=== PATIENT | female | born 1960 | race Caucasian/White ===

== ENCOUNTER 2020-04-05 11:49 | Emergency (ER) | payer BC ==
--- NOTE | 2020-04-05 12:30 | ER Document Report ---
ED Medical Screen (RME) - General Chief Complaint: Chest Pain Stated Complaint: CHEST PAIN Time Seen by Provider: 04/05/20 12:28 Mode of Arrival: Ambulatory Information source: Patient Notes: 59-year-old female presents to ED for complaint of chest pain intermittently for 2 years. She states for the last week or more is been much more frequently. Last week she has had for 5 episodes a day sometimes lasting 5 to 10 minutes. She states her heart was racing and is and she can gets resting it will come back down. She states she does drink multiple cups of coffee a day until the days of her states she has not drank coffee. She is alert oriented respirations regular nonlabored speaking in full sentences. I have greeted and performed a rapid initial assessment of this patient. A comprehensive ED assessment and evaluation of the patient, analysis of test results and completion of medical decision making process will be conducted by an additional ED providers. - Related Data Allergies/Adverse Reactions: No Known Allergies Allergy (Verified 04/05/20 12:20) Past Medical History - Social History Frequency of alcohol use: Rare Physical Exam - Vital signs Vitals: Temp Pulse Resp BP Pulse Ox 98.2 F 107 H 16 143/83 H 98 04/05/20 11:59 04/05/20 11:59 04/05/20 11:59 04/05/20 11:59 04/05/20 11:59 Course - Vital Signs Vital signs: Temp Pulse Resp BP Pulse Ox 98.2 F 107 H 16 143/83 H 98 04/05/20 11:59 04/05/20 11:59 04/05/20 11:59 04/05/20 11:59 04/05/20 11:59
--- NOTE | 2020-04-05 12:52 | RADIOLOGY REPORT (SQ) ---
EXAM DESCRIPTION: CHEST 2 VIEWS IMAGES COMPLETED DATE/TIME: 04/05/2020 12:44 pm REASON FOR STUDY: Chest pain COMPARISON: None. EXAM PARAMETERS: NUMBER OF VIEWS: two views TECHNIQUE: Digital Frontal and Lateral radiographic views of the chest acquired. RADIATION DOSE: NA LIMITATIONS: none FINDINGS: LUNGS AND PLEURA: No opacities, masses or pneumothorax. No pleural effusion. MEDIASTINUM AND HILAR STRUCTURES: No masses or contour abnormalities. HEART AND VASCULAR STRUCTURES: Heart normal size. No evidence for failure. BONES: No acute findings. HARDWARE: None in the chest. OTHER: No other significant finding. IMPRESSION: NO ACUTE RADIOGRAPHIC FINDING IN THE CHEST. TECHNICAL DOCUMENTATION: JOB ID: [id number] 2010 [employer]- All Rights Reserved Reading location - IP/workstation name: [email or web address]
--- NOTE | 2020-04-05 13:16 | EKG REPORT ---
SEVERITY:- ABNORMAL ECG - SINUS TACHYCARDIA REPOL ABNRM SUGGESTS ISCHEMIA, DIFFUSE LEADS, CLINICAL CORRELATION NEEDED. : Confirmed by: Garry Leo MD 05-Apr-2020 13:15:47
[2020-04-05 13:30] LABS: ABSOLUTE EOSINOPHILS # (AUTO) 0.1 10^3/uL (0.0-0.6); ABSOLUTE MONOCYTES (AUTO) 0.5 10^3/uL (0.1-1.4); ABSOLUTE NEUT (AUTO) 5.9 10^3/uL (1.7-8.2); BASOPHILS % (AUTO) 0.5 % (0-2); EOSINOPHILS % (AUTO) 0.6 % (0-6); HEMATOCRIT 39.6 % (36.0-47.0); HEMOGLOBIN 13.3 g/dL (12.0-15.5); LYMPHOCYTES % (AUTO) 23.5 % (13-45); MEAN CORPUSCULAR HEMOGLOBIN 25.7 pg (27.0-33.4); MEAN CORPUSCULAR HGB CONC 33.5 g/dL (32.0-36.0); MEAN CORPUSCULAR VOLUME 77 fl (80-97); MONOCYTES % (AUTO) 6.2 % (3-13); PLATELET COUNT 272 10^3/uL (150-450); RED BLOOD COUNT 5.17 10^6/uL (3.72-5.28); RED CELL DISTRIBUTION WIDTH 13.8 % (11.5-14.0); SEGMENTED NEUTROPHILS % (AUTO) 69.2 % (42-78); TOTAL CELLS COUNTED % (AUTO) 100 %; WHITE BLOOD COUNT 8.5 10^3/uL (4.0-10.5)
--- NOTE | 2020-04-05 13:37 | ER Document Report ---
ED Cardiac - General Chief Complaint: Chest Pain Stated Complaint: CHEST PAIN Time Seen by Provider: 04/05/20 12:28 Mode of Arrival: Ambulatory - [facility] Notes: Patient is a 59-year-old female with no significant past medical history who presents with chest pain. Patient states that she has had the symptoms off and on for the past 2 years. She has never seen anyone for this. The past week and a half, she has had increasing episodes. She states that it happens 4-5 times a day and lasts anywhere from 5 to 30 minutes. She states it feels like pressure and her heart pounding in her left chest. She has nausea with this as well. She denies any back pain or pain radiating down her arms or her jaw. She is not short of breath with this. She denies any shortness of breath. No pleuritic pain. She states that it happens more often when she is walking to her mailbox. The symptoms can also happen when she is just sitting and watching TV. She states she has started taking a baby aspirin every day about 1 week ago because that is what her does. No recent illnesses. She denies any leg s welling. No previous DVT or PE. She has never been diagnosed with high cholesterol or hypertension. She quit smoking in 1982. Patient states she made an appointment to establish care with a PCP today. She had a video visit and told the PCP her symptoms who recommended she go to the ED. - Related Data Allergies/Adverse Reactions: No Known Allergies Allergy (Verified 04/05/20 12:20) Past Medical History - General Information source: Patient - Social History Smoking Status: Former Smoker Frequency of alcohol use: Rare Family History: Reviewed & Not Pertinent Review of Systems - Review of Systems Notes: CONSTITUTIONAL: No fever, fatigue or weight loss. SKIN: No rash. HENT: No congestion, ear pain, or sore throat. EYES: No recent vision problems or eye pain. CARDIOVASCULAR: Positive for intermittent chest pain. No edema. RESPIRATORY: No cough, shortness of breath, congestion, or wheezing. GASTROINTESTINAL: No abdominal pain, vomiting. Positive for nausea when she gets the chest pain. MUSCULOSKELETAL: No joint pain or swelling. NEUROLOGIC: No seizures. No headache, focal weakness or sensory changes. HEMATOLOGIC: No unusual bruising or bleeding. PSYCHIATRIC: No depression or anxiety. Physical Exam - Vital signs Vitals: Temp Pulse Resp BP Pulse Ox 98.2 F 107 H 16 143/83 H 98 04/05/20 11:59 04/05/20 11:59 04/05/20 11:59 04/05/20 11:59 04/05/20 11:59 - General General appearance: Appears well In distress: None Notes: VITAL SIGNS: Within normal limits. GENERAL: No acute distress, non-toxic appearance. HEAD: Normal with no signs of head trauma. EYES: Conjunctiva normal, no discharge. EARS: Hearing grossly intact. NOSE: Normal. NECK: Normal range of motion, no tenderness, supple, no lymphadenopathy, No adenopathy, no JVD. CHEST: Clear breath sounds bilaterally. No wheezes, rales, or rhonchi. CARDIAC: Regular rate and rhythm. S1 and S2, without murmurs, gallops, or rubs. Chest pain is nonreproducible. No rashes. VASCULAR: No Edema. Bilateral radial pulses strong and equal. ABDOMEN: Normal and soft with no tenderness. GENITOURINARY: Normal, No tenderness LYMPATHTIC: No lymphadenopathy noted. MUSCULOSKELETAL: Good range of motion of all major joints. Extremities without clubbing, cyanosis or edema. NEUROLOGICAL: Alert and oriented x 3. No focal sensory or strength deficits. Speech normal. Follows commands appropriately. PSYCHIATRIC: Normal Affect, judgement and mood. SKIN: Normal appearance with no rashes or lesions. Course - Re-evaluation Re-evalutation: 04/05/20 14:22 Patient's EKG showed diffuse ST depressions. Her troponin returned at 1.8. Patient's blood sugar is also elevated, I have ordered her fluids for this. She is n.p.o. She is denying any chest pain at this time. She states her last episode of chest pain was slightly this morning and more last night. I discuss ed with Dr. Landeros from cardiology who will talk to the Administration Physician and see if we can keep her at our facility to cath her tomorrow or if she needs to be transferred. Dr. Landeros called me back and stated that they are unable to cath her tomorrow and he recommended that we transfer her to [place]. He recommended we treat her as an NSTEMI with heparin bolus and drip. 04/05/20 14:46 I spoke with the [place] transfer line. I am awaiting a callback from the pit supervisor. Patient was accepted to [place]. Accepting physician is Dr. Rosario. I discussed the work-up with her. Her second troponin is pending. Patient is denying any chest pain since first coming to the ER. She is resting comfortably. I have placed her on a heparin bolus and drip as per recommendation from Dr. Landeros. 04/05/20 21:07 On reassessment prior to transfer, patient continues to be in no acute distress. She has no chest pain at this time. Patient is stable for transfer. 04/06/20 20:36 - Vital Signs Vital signs: Temp Pulse Resp BP Pulse Ox 98.7 F 107 H 17 154/87 H 98 04/05/20 20:25 04/05/20 11:59 04/05/20 20:25 04/05/20 20:25 04/05/20 20:25 - Laboratory Results Result Diagrams: 04/05/20 18:35 04/05/20 13:10 Laboratory Results Interpreted: 04/05/20 04/05/20 04/05/20 13:10 13:10 18:35 MCV 77 L 76 L MCH 25.7 L 25.3 L RDW 14.1 H Sodium 136.0 L Creatinine 0.49 L Glucose 341 H Critical Laboratory Results Reviewed: Yes Attending or Supervising Physician who Reviewed Labs: ANNE BONILLA - Radiology Results Critical Radiology Results Reviewed: No Critical Results - EKG Interpretation by Pa EKG shows normal: Sinus rhythm Rate: Normal Rhythm: NSR When compared to previous EKG there are: Previous EKG unavailable Additional EKG results interpreted by me: 04/05/20 14:23 Sinus rhythm at a rate of 100. QTc 470. ST depressions in lead V3, V4, V5. Also ST depressions in lead I, lead II. No ST elevations. No previous EKG available for comparison. Critical Care Note - Critical Care Note Total time excluding time spent on procedures (mins): 45 Comments: Upon my evaluation, this patient had high probability of imminent or life- threatening deterioration due to unstable angina with elevated troponin, which required my direct attention, intervention, and personal management. I have personally provided 45 minutes of critical care time. Time includes review of laboratory data, radiology results, discussion with consultants, and monitoring for potential decompensation. Interventions were performed as documented above. Discharge - Discharge Clinical Impression: Unstable angina, Elevated troponin Chest pain Qualifiers: Chest pain type: unspecified Qualified Code(s): R07.9 - Chest pain, unspecified Condition: Serious Disposition: [facility]
[2020-04-05 13:45] LABS: ALBUMIN 3.6 g/dL (3.5-5.0); ALKALINE PHOSPHATASE 88 U/L (38-126); ANION GAP 6 (5-19); ASPARTATE AMINO TRANSFERASE 25 U/L (14-36); BILIRUBIN,DIRECT 0.3 mg/dL (0.0-0.4); BILIRUBIN,TOTAL 0.7 mg/dL (0.2-1.3); BLOOD UREA NITROGEN 17 mg/dL (7-20); CALCIUM 8.5 mg/dL (8.4-10.2); CARBON DIOXIDE 26 mmol/L (22-30); CHLORIDE 104 mmol/L (98-107); CREATINE KINASE 71 U/L (30-135); GLUCOSE 341 mg/dL (75-110); POTASSIUM 4.1 mmol/L (3.6-5.0); TOTAL PROTEIN 6.3 g/dL (6.3-8.2)
[2020-04-05 13:57] LABS: CREATINE KINASE MB 3.37 ng/mL (<4.55)
[2020-04-05 14:14] LABS: TROPONIN I 1.81 ng/mL
[2020-04-05] MEDS ORDERED: ASPIRIN 325 MG TABLET PO ONE (14:15)
[2020-04-05] MEDS ORDERED: NORMAL SALINE 1000 ML 1,000 ML IV ONE (15:24)
[2020-04-05] MEDS ORDERED: HEPARIN SODIUM,PORCINE/D5W 25,000 UNIT/250 ML RTUINJ IV PRN (15:26)
[2020-04-05] MEDS ORDERED: HEPARIN SOD (PORCINE) 1,000 UNIT/ML 10 ML VIAL IV ONE (15:26)
[2020-04-05 17:10] LABS: INTERNATIONAL RATION (INR) 0.95; PROTHROMBIN TIME 12.9 SEC (11.4-15.4)
[2020-04-05 17:11] LABS: PARTIAL THROMBOPLASTIN TIME 25.4 SEC (23.5-35.8)
[2020-04-05 18:55] LABS: ABSOLUTE EOSINOPHILS # (AUTO) 0.1 10^3/uL (0.0-0.6); ABSOLUTE LYMPHOCYTES (AUTO) 2.8 10^3/uL (0.5-4.7); ABSOLUTE MONOCYTES (AUTO) 0.5 10^3/uL (0.1-1.4); ABSOLUTE NEUT (AUTO) 4.2 10^3/uL (1.7-8.2); BASOPHILS % (AUTO) 0.4 % (0-2); EOSINOPHILS % (AUTO) 1.2 % (0-6); HEMATOCRIT 39.5 % (36.0-47.0); HEMOGLOBIN 13.1 g/dL (12.0-15.5); LYMPHOCYTES % (AUTO) 36.4 % (13-45); MEAN CORPUSCULAR HEMOGLOBIN 25.3 pg (27.0-33.4); MEAN CORPUSCULAR HGB CONC 33.1 g/dL (32.0-36.0); MEAN CORPUSCULAR VOLUME 76 fl (80-97); MONOCYTES % (AUTO) 6.8 % (3-13); PLATELET COUNT 253 10^3/uL (150-450); RED BLOOD COUNT 5.17 10^6/uL (3.72-5.28); RED CELL DISTRIBUTION WIDTH 14.1 % (11.5-14.0); SEGMENTED NEUTROPHILS % (AUTO) 55.2 % (42-78); TOTAL CELLS COUNTED % (AUTO) 100 %; WHITE BLOOD COUNT 7.6 10^3/uL (4.0-10.5)
[2020-04-05 20:38] VITALS: BP 154/87
== END 2020-04-05 20:24 | disposition short-term general hospital (02) ==
LOC: ER 11:49
DX: I20.0 Unstable angina (principal); R79.89 Other specified abnormal findings of blood chemistry; R11.0 Nausea; R73.9 Hyperglycemia, unspecified; Z87.891 Personal history of nicotine dependence; Z20.822 Contact with and (suspected) exposure to COVID-19
CPT/HCPCS: 93005; 99285; 96361; 96375; 96365; 96366; 36415; 82553; 82550; 83735; 85025; 85610; 85730; 0241U; 80053; 84484; 71046; 93010; J1644 ×2; J7030; C9803